=== PATIENT | male | born 1965 | race Hispanic/Latino ===

== ENCOUNTER 2019-01-02 10:34 | Emergency (ER) | payer MEDICARE, OTHER ==
[2019-01-02 10:36] VITALS: BMI 36.6
[2019-01-02 11:10] VITALS: BP 96/60; PULSE 116; RESP 18; TEMP 98.2; O2SAT 96
--- NOTE | 2019-01-02 11:10 | ED PDOC ---
Arrival/HPI - General Historian: Patient - History of Present Illness Narrative History of Present Illness (Text): 01/02/19 11:07 Patient is a 53yo M with PMH HTN, DM, HLD, Bipolar disorder, urinary retention presenting with fecal impaction since this morning. He reports feeling the urge to have a bowel movement and not being able to completely vacuate. He took two stool softeners at home with no relief. He denies previous history of this, but does report a history of hemorrhoids. Patient reports last bowel movement was 2 days ago. He denies pain in the rectum or blood in the stool. He denies fever, chills, nausea, vomiting, abdominal pain, dysuria, chest pain, or shortness of breath. <Shonda Maldonado - Last Filed: 01/02/19 12:33> <Minor Lau - Last Filed: 01/02/19 12:57> - General Chief Complaint: GI Problem Time Seen by Provider: 01/02/19 10:44 Past Medical History - Cardiac Hx Pacemaker: No - Hematological/Oncological Hx Blood Transfusions: No Hx Blood Transfusion Reaction: No - Musculoskeletal/Rheumatological Hx Musculoskeletal Disorders: No - Psychiatric Hx Emotional Abuse: No Hx Physical Abuse: No Hx Substance Use: Yes (IN RECOVERY NO DRUGS SINCE 24YRS) - Anesthesia Hx Anesthesia Reactions: No Hx Malignant Hyperthermia: No - Suicidal Assessment Feels Threatened In Home Enviroment: No <Shonda Maldonado - Last Filed: 01/02/19 12:33> Family/Social History Family/Social History: No Known Family HX Hx Alcohol Use: Yes (IN RECOVERY NO ALCOHOL SINCE 24YRS) Hx Substance Use: Yes (IN RECOVERY NO DRUGS SINCE 24YRS) <Shonda Maldonado - Last Filed: 01/02/19 12:33> Allergies/Home Meds <Shonda Maldonado - Last Filed: 01/02/19 12:33> <iMnor Lau - Last Filed: 01/02/19 12:57> Allergies/Adverse Reactions: Allergies amoxicillin trihydrate [From Augmentin] Allergy (Verified 01/02/19 11:10) RASH potassium clavulanate [From Augmentin] Allergy (Verified 01/02/19 11:10) RASH Home Medications: Home Meds Medication Instructions Recorded Confirmed Ascorbic Acid [Vitamin C] 1,000 mg PO DAILY 09/10/16 10/15/16 Bethanechol [Urecholine] 25 mg PO TID 09/10/16 10/15/16 Cinnamon Bark/Chromium Picolin 1 each PO DAILY 09/10/16 10/15/16 [Cinnamon Plus Chromium Capsule] Colesevelam HCl [Welchol] 3 tab PO BID 09/10/16 10/15/16 Divalproex [Depakote ER] 1,000 mg PO HS 09/10/16 10/15/16 GlipiZIDE [Glipizide] 10 mg PO BID 09/10/16 10/15/16 Levothyroxine [Synthroid] 0.075 mg PO DAILY 09/10/16 10/15/16 Magnesium Oxide [Magnesium] 400 mg PO DAILY 09/10/16 10/15/16 MetFORMIN [glucOPHAGE] 1,000 mg PO BID 09/10/16 10/15/16 Montelukast [Singulair] 10 mg PO DAILY 09/10/16 10/15/16 Multivit,Iron,Min 5/Folic Acid 1 tab PO DAILY 09/10/16 10/15/16 [Strovite Forte] [place]-3 Fatty Acids [Fish Oil] 1,000 mg PO DAILY 09/10/16 10/15/16 Pravastatin Sodium [Pravachol] 80 mg PO DAILY 09/10/16 10/15/16 SITagliptin [Januvia] 50 mg PO DAILY 09/10/16 10/15/16 Valsartan/Hydrochlorothiazide 1 tab PO DAILY 09/10/16 10/15/16 [Valsartan and Hydrochlorothiazide 12.5 mg-160] Ziprasidone HCl [Geodon] 80 mg PO DAILY 09/10/16 10/15/16 clonazePAM [clonAZEPAM] 0.5 mg PO HS 09/10/16 10/15/16 Review of Systems - Review of Systems Constitutional: Normal Eyes: Normal ENT: Normal Respiratory: Normal Cardiovascular: Normal Gastrointestinal: Constipation. absent: Diarrhea, Hematochezia Genitourinary Male: Normal Musculoskeletal: Normal Skin: Normal Neurological: Normal Endocrine: Normal Hemo/Lymphatic: Normal Psychiatric: Normal <Shonda Maldonado - Last Filed: 01/02/19 12:33> Physical Exam Vital Signs Reviewed: Yes Temperature: Afebrile Blood Pressure: Normal Pulse: Tachycardic Respiratory Rate: Normal Appearance: Positive for: Well-Appearing, Non-Toxic, Comfortable Pain Distress: None Mental Status: Positive for: Alert and Oriented X 3 - Systems Exam Head: Present: Atraumatic, Normocephalic Pupils: Present: PERRL Extroacular Muscles: Present: EOMI Conjunctiva: Present: Normal Mouth: Present: Moist Mucous Membranes Neck: Present: Normal Range of Motion Respiratory/Chest: Present: Clear to Auscultation, Good Air Exchange. No: Respiratory Distress, Accessory Muscle Use Cardiovascular: Present: Regular Rate and Rhythm, Normal S1, S2. No: Murmurs, Rub, Gallop Abdomen: Present: Tenderness. No: Distention, Normal Bowel Sounds, Peritoneal Signs Rectal: Present: Other (rectum dilated with soft stool inside). No: Occult Blood, Hemorrhoids Upper Extremity: Present: Normal Inspection. No: Cyanosis, Edema Lower Extremity: Present: Normal Inspection. No: Edema Neurological: Present: GCS=15, CN II-XII Intact, Speech Normal Skin: Present: Warm, Normal Color. No: Dry, Rashes Psychiatric: Present: Alert, Oriented x 3, Normal Insight <Shonda Maldonado - Last Filed: 01/02/19 12:33> Vital Signs Temp Pulse Resp BP Pulse Ox 01/02/19 10:35 98.2 F 116 H 18 96/60 L 96 <Minor Lau - Last Filed: 01/02/19 12:57> Medical Decision Making ED Course and Treatment: 01/02/19 12:23 Fecal Disimpaction performed, ample amount of hard stool removed. Patient given Colace and Miralax, reports feeling able to have bowel movement on his own. 01/02/19 12:33 Upon re-examination, abdomen remains non-tender. Patient was able to have bowel movement on his own without overt difficulty. Patient feels that his symptoms have much improved. Patient was advised to eat a diet rich in fiber, to take stool softeners regularly, and to follow up with his primary care physician and a gastroenterology. Patient understood and agreed. He was instructed to return to the ED if symptoms worsen. <Shonda Maldonado - Last Filed: 01/02/19 12:33> - Medication Orders Current Medication Orders: Discontinued Medications Docusate Sodium (Colace) 100 mg PO STAT STA Stop: 01/02/19 11:32 Last Admin: 01/02/19 12:05 Dose: 100 mg Last Bowel Movement Document 01/02/19 12:05 OCS (Rec: 01/02/19 12:05 OCS [id number]) Last Bowel Movement Last Bowel Movement 12/31/18 Polyethylene Glycol (Miralax) 17 gm PO STAT STA Stop: 01/02/19 11:32 Last Admin: 01/02/19 12:05 Dose: 17 gm <Minor Lau - Last Filed: 01/02/19 12:57> - PA / CONTACT WORKER / Resident Statement JANET has reviewed & agrees with the documentation as recorded. JANET has examined the patient and agrees with the treatment plan. (53 yr old male p/w constipation, appreciable stool noted at anus withou any hemrrhoids. Stool non bloody non dark disimpaction performned w/ great relief of pain. Pt w/ out abd tenderness upon eval and after disimpaction, clear for d/c home w/ follow up and return indications.) <Minor Lau - Last Filed: 01/02/19 12:57> Disposition/Present on Arrival - Present on Arrival Any Indicators Present on Arrival: No History of DVT/PE: No History of Uncontrolled Diabetes: No Urinary Catheter: No History of Decub. Ulcer: No - Disposition Have Diagnosis and Disposition been Completed?: Yes Disposition Time: 12:37 <Shonda Maldonado - Last Filed: 01/02/19 12:33> <Minor Lau - Last Filed: 01/02/19 12:57> - Disposition Diagnosis: Fecal impaction Disposition: HOME/ ROUTINE Condition: IMPROVED Discharge Instructions (ExitCare): Fecal Impaction (DC) Additional Instructions: Please follow up with your primary care physician. Please follow up with gastroenterology. Please take colace and miralax for constipation and hard stool. Eat a diet rich in fiber. If symptoms worsen, return to the emergency department. Referrals: Irwin Becker MD [Primary Care Provider] - Follow up with primary Angel Taylor MD [Staff Provider] - Follow up with primary Forms: [employer] ([place])
[2019-01-02] MEDS ORDERED: POLYETHYLENE GLYCOL 3350 17 GM/Dose PACKET PO STA (11:31)
== END 2019-01-02 12:42 | disposition home or self-care (01) ==
LOC: ED 10:34
DX: K56.41 Fecal impaction (principal)

== ENCOUNTER 2019-01-17 09:21 | Outpatient (CLI) | payer MEDICARE, OTHER | END 2019-01-17 09:22 | disposition home or self-care (01) | LOC: LAB 09:21 ==